=== PATIENT | male | born 1975 | race Caucasian/White ===

== ENCOUNTER 2021-10-16 08:15 | Emergency (ER) | payer MEDICAID ==
[~2021-10-16] VITALS: Ht 170.2 cm; Wt 71.0 kg
[2021-10-16 08:21] VITALS: BP 130/86
[2021-10-16] MEDS ORDERED: ACETAMINOPHEN 325MG TABLET PO ONE (09:00)
[2021-10-16] MEDS ORDERED: LIDO700A30 TP (09:51)
[2021-10-16] MEDS ORDERED: LIDOCAINE 5% PATCH TOP SCH (10:00)
== END 2021-10-16 09:59 | disposition home or self-care (01) ==
LOC: ER 08:28
DX: S06.0X9A Concussion with loss of consciousness of unspecified duration, initial encounter (principal); S43.102A Unspecified dislocation of left acromioclavicular joint, initial encounter; R40.2412 Glasgow coma scale score 13-15, at arrival to emergency department; Y08.89XA Assault by other specified means, initial encounter; Y93.9 Activity, unspecified; Y92.9 Unspecified place or not applicable; Z98.890 Other specified postprocedural states
CPT/HCPCS: 71045; 73030; 99284

== ENCOUNTER 2022-04-02 00:55 | Emergency (ER) | payer MEDICAID, OTHER ==
[~2022-04-02] VITALS: Ht 167.6 cm; Wt 70.0 kg
[~2022-04-02 00:55] MED LIST: LIDO700A30 TP
[2022-04-02] MEDS ORDERED: HYDROCODONE/ACETAMINOPHEN 5/325MG TABLET PO ONE (03:15)
[2022-04-02 04:20] VITALS: BP 118/81
[2022-04-02] MEDS ORDERED: HYDR-4001 MT (04:41)
== END 2022-04-02 05:00 | disposition home or self-care (01) ==
LOC: ER 00:55
DX: S82.491A Other fracture of shaft of right fibula, initial encounter for closed fracture (principal); X50.1XXA Overexertion from prolonged static or awkward postures, initial encounter; Y93.89 Activity, other specified; Y92.89 Other specified places as the place of occurrence of the external cause
CPT/HCPCS: 29515; 73600; 99283

== ENCOUNTER 2022-10-20 11:58 | Emergency (ER) | payer OTHER ==
[~2022-10-20] VITALS: Ht 167.6 cm; Wt 70.3 kg
[~2022-10-20 11:58] MED LIST changes: +HYDR-4001 MT
[2022-10-20 12:00] VITALS: BP 121/82; PULSE 79; RESP 18; TEMP 98.2; O2SAT 100
[2022-10-20] MEDS ORDERED: ERYT1OIN6 LEFTEYE (12:58)
[2022-10-20] MEDS ORDERED: AMOX1TAB16 MT (12:58)
[2022-10-20] MEDS ORDERED: SULF1TAB48 MT (12:58)
== END 2022-10-20 13:32 | disposition home or self-care (01) ==
LOC: ER 11:58
DX: L03.213 Periorbital cellulitis (principal); H01.006 Unspecified blepharitis left eye, unspecified eyelid; Z79.899 Other long term (current) drug therapy
CPT/HCPCS: 99281

== ENCOUNTER 2023-06-02 19:30 | Emergency (ER) | payer OTHER ==
[~2023-06-02] VITALS: Ht 167.6 cm; Wt 71.0 kg
[~2023-06-02 19:30] MED LIST changes: +AMOX1TAB16 MT; +ERYT1OIN6 LEFTEYE; +SULF1TAB48 MT
[2023-06-02 19:48] VITALS: BP 118/75; PULSE 112; RESP 18; TEMP 101.3; O2SAT 98
== END 2023-06-02 20:57 | disposition left against medical advice (07) ==
LOC: ER 19:30
DX: U07.1 COVID-19 (principal); Z53.21 Procedure and treatment not carried out due to patient leaving prior to being seen by health care provider
CPT/HCPCS: 99281

== ENCOUNTER 2023-06-04 07:40 | Emergency (ER) | payer OTHER ==
[~2023-06-04] VITALS: Ht 167.6 cm; Wt 70.5 kg
[2023-06-04 08:01] VITALS: O2SAT 98
[2023-06-04] MEDS: ACETAMINOPHEN 325MG TABLET PO ONE (08:39)
[2023-06-04] MEDS: IBUPROFEN 400MG TABLET PO ONE (08:39)
[2023-06-04 09:11] LABS: BASOPHILS % 0.5 % (0.0-2.0); EOSINOPHILS % 0.4 % (0.0-5.0); HEMATOCRIT. 52.7 % (42.0-52.0); HEMOGLOBIN. 18.2 g/dL (14.0-18.0); MEAN CORPUSCULAR HEMOGLOBIN 31.2 pg (28.0-32.0); MEAN CORPUSCULAR HGB CONC 34.6 g/dL (31.0-37.0); MEAN CORPUSCULAR VOLUME 90.3 fL (80.0-94.0); MONOCYTES % 10.7 % (2.0-8.0); NEUTROPHILS % 70.4 % (40.0-76.0); PLATELET 153 x1000/uL (130-400); RED BLOOD CELL COUNT 5.83 mill/uL (4.7-6.1); RED CELL DISTRIBUTION WIDTH 13.7 % (11.6-14.6); WHITE BLOOD COUNT 4.6 x1000/uL (4.5-11.0)
[2023-06-04 09:26] LABS: ALANINE AMINOTRANSFERASE 25 IU/L (10-49); ALBUMIN 4.6 g/dL (3.2-4.8); ASPARTATE AMINOTRANSFERASE 35 IU/L (<34); BILIRUBIN TOTAL 0.6 mg/dL (0.1-1.0); CALCIUM 8.3 mg/dL (8.7-10.4); CARBON DIOXIDE 30 mEq/L (21-32); CHLORIDE 94 mEq/L (98-107); CREATININE 0.9 mg/dL (0.6-1.3); GLUCOSE 109 mg/dL (70-105); POTASSIUM 4.1 mEq/L (3.5-5.1); PROTEIN TOTAL 7.1 g/dL (6.0-8.3); SODIUM 131 mEq/L (136-145); UREA NITROGEN BLOOD 9 mg/dL (9-23)
[2023-06-04] MEDS: KETOROLAC 60MG/2ML VIAL IM ONE (12:27)
[2023-06-04 13:21] LABS: CLARITY URINE CLEAR (CLEAR); COLOR URINE DARK YELLOW (YELLOW); GLUCOSE URINE NEGATIVE (NEGATIVE); KETONES URINE 2+ (NEGATIVE); LEUKOCYTE ESTERASE URINE NEGATIVE (NEGATIVE); NITRITE URINE NEGATIVE (NEGATIVE); OCCULT BLOOD URINE NEGATIVE (NEGATIVE); PH URINE 6.5 (4.5-8.0); PROTEIN URINE TRACE (NEGATIVE); SPECIFIC GRAVITY URINE 1.022 (1.005-1.030)
[2023-06-04 13:32] LABS: SQUAMOUS EPITHELIAL CELL URINE NONE SEEN /lpf (RARE/1+)
[2023-06-04 13:33] LABS: BACTERIA URINE FEW; YEAST URINE NONE SEEN
[2023-06-04] MEDS ORDERED: TAM75 MT (13:33)
[2023-06-04] MEDS ORDERED: ACET-2708 MT (13:33)
[2023-06-04 14:29] VITALS: BP 102/73; PULSE 78; RESP 18; TEMP 98.3
== END 2023-06-04 14:20 | disposition home or self-care (01) ==
LOC: ER 07:40
DX: J11.1 Influenza due to unidentified influenza virus with other respiratory manifestations (principal); Z79.899 Other long term (current) drug therapy; Z20.822 Contact with and (suspected) exposure to COVID-19
CPT/HCPCS: 99284; 71046; 87426; 80053; 81003; 85025; 87804 ×2; 36415; 96372; J1885